=== PATIENT | female | born 1995 | race Two or more races ===

== ENCOUNTER 2022-02-12 18:49 | Inpatient (IN) | payer MEDICAID, OTHER, SELFPAY ==
--- NOTE | 2022-02-12 19:33 | P.HPPS_ITS ---
HPI Date of Service: 02/12/22 Chief Complaint: OD, depression Sources of Information: patient interviewed, chart reviewed and crisis/core team assessment reviewed HPI Subjective Notes: [place] Warning, Conditional Voluntary and 3 Day Healthcare Proxy: No Guardianship: No Medical Problems Affecting Mental Status: No Narrative: Pt is a 26 y.o. Trinid[place] speaking female who presented to [facility] on 02/07/22 after she disclosed to her friend that she had intentionally overdosed on 50 pills that was a mixture of tylenol 500 mg, loratadine, and benadryl. She was medically admitted and cleared on 02/12/22. Precipitating factors include her boyfriend, who she was living with, said he was leaving and didn?t say why. Reviewed labs from admission, which showed CMP wnl except glucose L 69. Utox was negative. U/A negative. Serum negative. Acetaminophen level 16. CBC wnl except Hgb L 11.5. EKG wnl, Qtc 417, NSR. Hx of SIB (superficial cutting).? Per [facility] crisis, pt would not disclose if this was a suicide attempt and as per records she has said both that she was trying to sleep and also mentioned she wished she did not wake up.? I evaluated the pt this evening and upon interview she says her mood is ?good.? She denies issues with sleep. Denies anxiety. Denies depression. Denies SI/SIB/HI. No physical health issues. Signed a 3 day notice. Past Psychiatric History: -Denies past psych hx Medical [facility] Social History: -Pt was raised in the [place] with her parents who are supportive. She moved to [place] in 2018. Was living with her bf but he recently left. -She graduated high school and then went to college for 2 yrs studying graphics design. Has been working at a [employer]. Substance History: -Denies alcohol or illicit substance use. Last used cannabis 2 weeks ago. Meds/Allergies Meds Home Medications Acetaminophen (Acetaminophen 325 Mg Tablet) 650 mg PO Q6H PRN PRN Reason: Headache/Pain Mild Scale (1-3) Acetaminophen (Acetaminophen 325 Mg Tablet) 650 mg PO Q6H PRN PRN Reason: Headache/Pain Mild Scale (1-3) Al Hydroxide/Mg Hydroxide (Magnesium Hydrox/Alum Hydrox 30 Ml Oral.Susp) 30 ml PO Q6H PRN PRN Reason: Heartburn/Nausea Last Admin: 02/13/22 19:47 Dose: 30 ml Documented by: Al Hydroxide/Mg Hydroxide (Magnesium Hydrox/Alum Hydrox 30 Ml Oral.Susp) 30 ml PO Q6H PRN PRN Reason: Heartburn/Nausea Hydroxyzine HCl (Hydroxyzine Hcl 25 Mg Tablet) 25 mg PO Q6H PRN PRN Reason: Anxiety Magnesium Hydroxide (Milk Of Magnesia 30 Ml Oral.Susp) 30 ml PO DAILY PRN PRN Reason: Constipation Magnesium Hydroxide (Milk Of Magnesia 30 Ml Oral.Susp) 30 ml PO DAILY PRN PRN Reason: Constipation Nicotine Polacrilex (Nicotine Polacrilex 2 Mg Gum) 4 mg BUCCAL Q2H PRN PRN Reason: Nicotine Cravings Trazodone HCl (Trazodone Hcl 50 Mg Tablet) 50 mg PO BEDTIME PRN PRN Reason: Insomnia Trazodone HCl (Trazodone Hcl 50 Mg Tablet) 50 mg PO BEDTIME PRN PRN Reason: Insomnia Allergies Allergies Allergy/AdvReac Type Severity Reaction Status Date / Time No Known Allergies Allergy Verified 02/12/22 18:54 Mental Status Exam Mental Status Exam Narrative: A&O. In hospital attire, overweight, well groomed. Good eye contact, attentive. No Tics or Tremors. No abnormal involuntary movements. Calm, somewhat guarded but overall cooperative, not overly talkative. Non-pressured speech, spontaneous with regular rate and rhythm, normal volume and prosody. No prolonged speech latency or dysarthria. Mood is ?good,? affect is nervous but appropriate. Denies SI/SIB/HI upon inquiry. Denies A/VH or delusional thought content. Thoughts are coherent, organized. No known cognitive or memory impairment. Insight/ Judgment limited but adequate. Assessment & Plan Assessment & Plan (1) MDD (major depressive disorder), single episode, mild: Status: Acute Code(s): F32.0 - Major depressive disorder, single episode, mild Plan Pt is a 26 y.o. [place] speaking female who presented to [facility] on 02/07/22 after she disclosed to her friend that she had intentionally overdosed on 50 pills that was a mixture of tylenol 500 mg, loratadine, and benadryl. She was medically admitted and cleared on 02/12/22. Precipitating factors include her boyfriend, who she was living with, said he was leaving and didn?t say why. No previous psych hx. No past psych med trials. Plan: Pt declines med trial at this time, says she is feeling safe. Signed a 3 day. Q15 min safety checks, CV Monitor response to medications. Monitor for safety in the milieu. Discharge on stabilization. Patient seen. Chart reviewed. Discussed with team. Obtain collateral contact info?as needed Patient educated on: medication risk/benefits and therapeutic strategies Reason for continued inpatient stay Substantial Risk for: med/psych decompensation
[2022-02-12 19:55] VITALS: BMI 37.0
--- NOTE | 2022-02-12 22:32 | PC.ADMIT ---
Pt is 26 year old woman. Pt is Georgian speaking. [employer] services used in admission. Pt is admitted from [facility] for inpatient level of care after pt was s/p of intentional overdose with Tylenol and Benadryl. Pt is alert and oriented X4, VSS, Covid negative, Tox screen negative. Speech is normal with regular tone and rhythm. Pt endorsed experiencing depressed mood, loneliness, poor appetite, increased sleep, and presented with depressed mood and congruent affect with poor judgment and impulse control. Pt was tearful after mum left the unit, saying she has not been admitted in an inpatient unit before. Admission orders obtained.
[2022-02-13 06:00] VITALS: BP 107/70; PULSE 72; RESP 18; TEMP 36.9; O2SAT 98
[2022-02-13 09:32] LABS: Magnesium 2.2 mg/dL (1.6-2.6)
[2022-02-13 09:54] LABS: Free T4 (Free Thyroxine) 0.93 ng/dL (0.71-1.85); Thyroid Stimulating Hormone 1.92 uIU/mL (0.32-4.0)
--- NOTE | 2022-02-13 10:04 | PC.NURSE ---
Pt signed 3 day up on tuesday 02/13. MR, SW, UR aware.
[2022-02-13 13:40] LABS: Folate 12.3 ng/mL (> or = 4.0); Vitamin B12 449 pg/mL (200-900)
--- NOTE | 2022-02-13 17:52 | HO.PSYADMNOT ---
HPI Chief Complaint: OD, depression Diagnostics Vital Signs (24Hr): Vital Signs - 24 hr 02/13/22 06:00 Temperature 98.4 F Pulse Rate 72 Respiratory Rate 18 Blood Pressure 107/70 Pulse Oximetry 98 BMI result Body Mass Index 37.0 Labs Labs: Laboratory Results - last 48 hr 02/13/22 02/13/22 08:35 08:35 Magnesium 2.2 Vitamin B12 449 Folate 12.3 TSH 1.92 Free T4 0.93 Meds/Allergies Allergies Allergies Allergy/AdvReac Type Severity Reaction Status Date / Time No Known Allergies Allergy Verified 02/12/22 18:54
[2022-02-13 19:45] VITALS: BP 119/84; PULSE 101; TEMP 36.7
[2022-02-13] MEDS: Magnesium Hydrox/Alum Hydrox 30 ML ORAL.SUSP PO (19:47)
--- NOTE | 2022-02-13 22:27 | P.PNPSI_ITS ---
Subjective Subjective Date of Service: 02/13/22 Reason For Visit: OD, depression Subjective Notes: [place] Warning, Conditional Voluntary and 3 Day Healthcare Proxy: No Guardianship: No Medical Problems Affecting Mental Status: No Interim History: Patient seen and discussed with team. Patient evaluated today with spanish interpreter/translator and upon interview she says she is good, slept well. Still doesnt want to trial psych meds. Interested in obtaining OP therapy referral. She continues to report that her OD attempt was not a suicide attempt, says she didnt want to and had a lot of stuff going through my head, felt tired and couldnt sleep, I wanted to just relax and sleep. Says I didnt know tylenol was gonna cause that kind of damage. Says she was feeling sad but not really so depressed. She reports she was planning to get to her bf but he left with no explanation, she doesnt know what happened. Says she has since talked to him and she doesnt feel too bad about this, feels like she has accepted that god decided for this to happen. Has supports, i.e. mom and she has a cousin who is gonna move in with her. Interested in studying cosmetology, doing nails. Denies anxiety. Says she feels normal. Says she feels like im in shelter, wants to go home. Denies SI/SIB.? In the milieu, patient is safe and appropriate in behavior. Says she feels safe. Medication Compliance: Yes Side effects from medications: No Attending Groups: No Review of Systems Acute medical concerns: No Medical Review of Systems: unchanged Mental Status Exam Mental Status Exam Narrative: A&O. In casual attire, overweight, well groomed. Good eye contact, attentive. No Tics or Tremors. No abnormal involuntary movements. Calm, somewhat guarded but overall cooperative, not overly talkative. Non-pressured speech, spontaneous with regular rate and rhythm, normal volume and prosody. No prolonged speech latency or dysarthria. Mood is ?good,? affect is nervous but appropriate. Denies SI/SIB/HI upon inquiry. Denies A/VH or delusional thought content. Thoughts are coherent, organized. No known cognitive or memory impairment. Insight/ Judgment limited but adequate. Diagnostics Vital Signs (24Hr): Vital Signs - 24 hr 02/13/22 06:00 Temperature 98.4 F Pulse Rate 72 Respiratory Rate 18 Blood Pressure 107/70 Pulse Oximetry 98 BMI result Body Mass Index 37.0 Labs Labs: Laboratory Results - last 48 hr 02/13/22 02/13/22 08:35 08:35 Magnesium 2.2 Vitamin B12 449 Folate 12.3 TSH 1.92 Free T4 0.93 Medications Medications Current Medications Acetaminophen (Acetaminophen 325 Mg Tablet) 650 mg PO Q6H PRN PRN Reason: Headache/Pain Mild Scale (1-3) Acetaminophen (Acetaminophen 325 Mg Tablet) 650 mg PO Q6H PRN PRN Reason: Headache/Pain Mild Scale (1-3) Al Hydroxide/Mg Hydroxide (Magnesium Hydrox/Alum Hydrox 30 Ml Oral.Susp) 30 ml PO Q6H PRN PRN Reason: Heartburn/Nausea Last Admin: 02/13/22 19:47 Dose: 30 ml Documented by: Al Hydroxide/Mg Hydroxide (Magnesium Hydrox/Alum Hydrox 30 Ml Oral.Susp) 30 ml PO Q6H PRN PRN Reason: Heartburn/Nausea Hydroxyzine HCl (Hydroxyzine Hcl 25 Mg Tablet) 25 mg PO Q6H PRN PRN Reason: Anxiety Magnesium Hydroxide (Milk Of Magnesia 30 Ml Oral.Susp) 30 ml PO DAILY PRN PRN Reason: Constipation Magnesium Hydroxide (Milk Of Magnesia 30 Ml Oral.Susp) 30 ml PO DAILY PRN PRN Reason: Constipation Nicotine Polacrilex (Nicotine Polacrilex 2 Mg Gum) 4 mg BUCCAL Q2H PRN PRN Reason: Nicotine Cravings Trazodone HCl (Trazodone Hcl 50 Mg Tablet) 50 mg PO BEDTIME PRN PRN Reason: Insomnia Trazodone HCl (Trazodone Hcl 50 Mg Tablet) 50 mg PO BEDTIME PRN PRN Reason: Insomnia Allergies Allergies Allergy/AdvReac Type Severity Reaction Status Date / Time No Known Allergies Allergy Verified 02/12/22 18:54 Assessment & Plan Assessment & Plan (1) MDD (major depressive disorder), single episode, mild: Status: Acute Code(s): F32.0 - Major depressive disorder, single episode, mild Plan Pt is a 26 y.o. [place] speaking female who presented to [facility] on 02/07/22 after she disclosed to her friend that she had intentionally overdosed on 50 pills that was a mixture of tylenol 500 mg, loratadine, and benadryl. She was medically admitted and cleared on 02/12/22. Precipitating factors include her boyfriend, who she was living with, said he was leaving and didn?t say why. No previous psych hx. No past psych med trials. Plan: Pt declines med trial at this time, says she is feeling safe. Signed a 3 day. 02/13: Pt continues to decline med management, denies SI/SIB. Q15 min safety checks, CV Monitor response to medications. Monitor for safety in the milieu. Discharge on stabilization. Patient seen. Chart reviewed. Discussed with team. Obtain collateral contact info?as needed I spent minutes with the patient and/or on the patient floor today, greater than?50% of which was spent counseling/coordinating care. Patient educated on: therapeutic strategies Guardian/Caregiver educated on: therapeutic strategies Reason for contiued inpatient stay Substantial Risk for: med/psych decompensation
[2022-02-14 06:00] VITALS: BP 113/59; PULSE 80; TEMP 37; O2SAT 98
--- NOTE | 2022-02-14 10:28 | HO.PM.IMCN ---
History of Present Illness Data of Consult Service Date: 02/14/22 Primary Care Provider: Unknown Physician HPI Reason for consult: Routine Medical H&P 26 yo F with a PMH of intermittent asthma who is admitted to . Medical consult requested for routine medical H&P per protocol. Patient is seen and examined in the exam room. Floor staff member interprets and patients mother is present. They deny any medical complaints at this time. PMH Intermittent asthma PSH Denies FH HTN, DM in father SH Denies tobacco, alcohol or illicit substance abuse Review of Systems Review of Systems: negative except HPI PMFSH Social History Household Members: Family Housing: House Do you presently have visiting nurse or other home services: No Patient Tobacco Use Status: Never used Tobacco Use of substances other than those prescribed or required for medical reasons: No Currently Displaying Signs/Symptoms of Drug Intoxication Withdrawal: No Have you been hit, kicked, punched, or otherwise hurt by someone within the past year? If so, by whom?: No Do you feel safe in your current relationship?: No Current Relationship Is there a partner from a previous relationship who is making you feel unsafe now?: No Are you made to feel afraid or neglected: No Spiritual Healthcare Practices: N/A Confucianism Healthcare Practices: N/A Cultural Healthcare Practices: N/A Advance Directives: No Advance Directives Information Provided: No Advance Directives on File: No Do you have thoughts of harming others: None Do you have a plan to hurt others: No Plan Recently lost weight without trying: No How much weight loss: Not applicable Eating poorly because of decreased appetite: No Nutrition screen score: 0 Nutrition Risks: No Nutritional Risk Patient : No : No Poor oral hygiene: No service: No Sexual orientation: Straight/Heterosexual Meds Allergies Allergy/AdvReac Type Severity Reaction Status Date / Time No Known Allergies Allergy Verified 02/12/22 18:54 Active Medications: Current Medications Acetaminophen (Acetaminophen 325 Mg Tablet) 650 mg PO Q6H PRN PRN Reason: Headache/Pain Mild Scale (1-3) Acetaminophen (Acetaminophen 325 Mg Tablet) 650 mg PO Q6H PRN PRN Reason: Headache/Pain Mild Scale (1-3) Al Hydroxide/Mg Hydroxide (Magnesium Hydrox/Alum Hydrox 30 Ml Oral.Susp) 30 ml PO Q6H PRN PRN Reason: Heartburn/Nausea Last Admin: 02/13/22 19:47 Dose: 30 ml Documented by: Al Hydroxide/Mg Hydroxide (Magnesium Hydrox/Alum Hydrox 30 Ml Oral.Susp) 30 ml PO Q6H PRN PRN Reason: Heartburn/Nausea Hydroxyzine HCl (Hydroxyzine Hcl 25 Mg Tablet) 25 mg PO Q6H PRN PRN Reason: Anxiety Magnesium Hydroxide (Milk Of Magnesia 30 Ml Oral.Susp) 30 ml PO DAILY PRN PRN Reason: Constipation Magnesium Hydroxide (Milk Of Magnesia 30 Ml Oral.Susp) 30 ml PO DAILY PRN PRN Reason: Constipation Nicotine Polacrilex (Nicotine Polacrilex 2 Mg Gum) 4 mg BUCCAL Q2H PRN PRN Reason: Nicotine Cravings Trazodone HCl (Trazodone Hcl 50 Mg Tablet) 50 mg PO BEDTIME PRN PRN Reason: Insomnia Trazodone HCl (Trazodone Hcl 50 Mg Tablet) 50 mg PO BEDTIME PRN PRN Reason: Insomnia Physical Exam Vital Signs and Narrative: Vital Signs: Last Vital Signs Temp 98.6 F 02/14/22 06:00 Pulse 80 02/14/22 06:00 Resp 18 02/13/22 06:00 BP 113/59 L 02/14/22 06:00 Pulse Ox 98 02/14/22 06:00 BMI result Body Mass Index 37.0 Const: Other: General - no acute distress, appears comfortable Cardiovascular - regular rate and rhythm, S1-S2 Lungs - normal respiratory effort, clear to auscultation bilaterally, no wheezing Abdomen - soft, nontender, no rebound or guarding Extremities - no edema bilaterally Neuro - awake and alert, no focal deficits; cn 2-12 intact bilaterally Results Labs Labs: Laboratory Results - last 24 hr 02/13/22 08:35 Vitamin B12 449 Folate 12.3 Assessment and Plan (1) Routine medical exam: Status: Acute Plan 26 yo F with intermittent asthma, admitted to . Medical consultation sought for routine medical H&P. Patient has no active medical issues. Patient has been counseled on age appropriate health maintenance as an outpatient. Continue care per primary team. Will sign off. Please re-consult if any issues arise.
--- NOTE | 2022-02-14 16:19 | HO.PSYCHPN ---
Subjective Subjective Date of Service: 02/14/22 Reason For Visit: OD, depression Subjective Notes: [place] Warning, Conditional Voluntary and 3 Day Healthcare Proxy: No Guardianship: No Medical Problems Affecting Mental Status: No Interim History: Patient seen and discussed with team. Patient evaluated today with program management specialist and SW and upon interview she reports she feels good, she continues to deny sx of anxiety or depression. Continues to deny that her overdose was a suicide attempt and denies urges to self harm, denies SI. She identifies protective factors as family, work, and her dog. Says she doesnt want to end up back in the hospital again and says she feels safe. Administered PHQ-9, which was negative. In the milieu, patient is safe and appropriate in behavior. Review of Systems Acute medical concerns: No Medical Review of Systems: unchanged Mental Status Exam Mental Status Exam Narrative: A&O. In casual attire, overweight, well groomed. Good eye contact, attentive. No Tics or Tremors. No abnormal involuntary movements. Calm, somewhat guarded but overall cooperative, not overly talkative. Non-pressured speech, spontaneous with regular rate and rhythm, normal volume and prosody. No prolonged speech latency or dysarthria. Mood is ?good,? affect is euthymic. Denies SI/SIB/HI upon inquiry. Denies A/VH or delusional thought content. Thoughts are coherent, organized. No known cognitive or memory impairment. Insight/ Judgment limited, as she appears to be minimizing situation, but adequate. Diagnostics Vital Signs (24Hr): Vital Signs - 24 hr 02/13/22 19:45 02/14/22 06:00 Temperature 98.0 F 98.6 F Pulse Rate 101 H 80 Blood Pressure 119/84 113/59 L Pulse Oximetry 98 BMI result Body Mass Index 37.0 Labs Labs: Laboratory Results - last 48 hr 02/13/22 02/13/22 08:35 08:35 Magnesium 2.2 Vitamin B12 449 Folate 12.3 TSH 1.92 Free T4 0.93 Medications Medications Current Medications Acetaminophen (Acetaminophen 325 Mg Tablet) 650 mg PO Q6H PRN PRN Reason: Headache/Pain Mild Scale (1-3) Acetaminophen (Acetaminophen 325 Mg Tablet) 650 mg PO Q6H PRN PRN Reason: Headache/Pain Mild Scale (1-3) Al Hydroxide/Mg Hydroxide (Magnesium Hydrox/Alum Hydrox 30 Ml Oral.Susp) 30 ml PO Q6H PRN PRN Reason: Heartburn/Nausea Last Admin: 02/13/22 19:47 Dose: 30 ml Documented by: Al Hydroxide/Mg Hydroxide (Magnesium Hydrox/Alum Hydrox 30 Ml Oral.Susp) 30 ml PO Q6H PRN PRN Reason: Heartburn/Nausea Hydroxyzine HCl (Hydroxyzine Hcl 25 Mg Tablet) 25 mg PO Q6H PRN PRN Reason: Anxiety Magnesium Hydroxide (Milk Of Magnesia 30 Ml Oral.Susp) 30 ml PO DAILY PRN PRN Reason: Constipation Magnesium Hydroxide (Milk Of Magnesia 30 Ml Oral.Susp) 30 ml PO DAILY PRN PRN Reason: Constipation Nicotine Polacrilex (Nicotine Polacrilex 2 Mg Gum) 4 mg BUCCAL Q2H PRN PRN Reason: Nicotine Cravings Trazodone HCl (Trazodone Hcl 50 Mg Tablet) 50 mg PO BEDTIME PRN PRN Reason: Insomnia Trazodone HCl (Trazodone Hcl 50 Mg Tablet) 50 mg PO BEDTIME PRN PRN Reason: Insomnia Allergies Allergies Allergy/AdvReac Type Severity Reaction Status Date / Time No Known Allergies Allergy Verified 02/12/22 18:54 Assessment & Plan Assessment & Plan (1) Routine medical exam: Status: Acute Code(s): Z00.00 - Encounter for general adult medical examination without abnormal findings Plan Pt is a 26 y.o. Citizen [place] speaking female who presented to [facility] on 02/07/22 after she disclosed to her friend that she had intentionally overdosed on 50 pills that was a mixture of tylenol 500 mg, loratadine, and benadryl. She was medically admitted and cleared on 02/12/22. Precipitating factors include her boyfriend, who she was living with, said he was leaving and didn?t say why. No previous psych hx. No past psych med trials. Plan: Pt declines med trial at this time, says she is feeling safe. Signed a 3 day. 02/13: Pt continues to decline med management, denies SI/SIB. 02/14: Pt not interested in med management, says she feels safe, denies SI/SIB Q15 min safety checks, CV Monitor response to medications. Monitor for safety in the milieu. Discharge on stabilization. Patient seen. Chart reviewed. Discussed with team. Obtain collateral contact info?as needed I spent minutes with the patient and/or on the patient floor today, greater than?50% of which was spent counseling/coordinating care. Patient educated on: therapeutic strategies Reason for contiued inpatient stay Substantial Risk for: stable for discharge
[2022-02-15 06:10] VITALS: BP 108/68; PULSE 70; RESP 15; TEMP 36.8; O2SAT 99
--- NOTE | 2022-02-15 20:23 | PM.DS ---
DS: Providers Provider Date of Service: 02/15/22 Date of admission: 02/12/22 18:49 Date of discharge: 02/15/22 Primary care physician: Unknown Physician Admitting clinician: Bobbi Ann Attending physician on admission: Rohith Zamora Consults: 02/12/22 18:54 Consult to Hospitalist Routine Consulting Provider: Hospitalist Reason For Exam: [place] [facility] [place]12[place] 20:02 Consult to Hospitalist Routine Consulting Provider: Hospitalist Reason For Exam: admission physical Attending physician on discharge: Rohith Zamora Discharging clinician: Bobbi Ann DS: Diagnosis Discharge Diagnosis (1) Routine medical exam: Status: Acute DS: Summary Hospital Course Hospital Course: Pt is a 26 y.o. Urdu speaking female who presented [place] [facility] [place] after she disclosed to her friend that she had intentionally overdosed on 50 pills that was a mixture of tylenol 500 mg, loratadine, and benadryl. She was medically admitted and cleared on 02/12/22. Precipitating factors include her boyfriend, who she was living with, said he was leaving and didn?t say why. Reviewed labs from admission, which showed CMP wnl except glucose L 69. Utox was negative. U/A negative. Serum negative. Acetaminophen level 16. CBC wnl except Hgb L 11.5. EKG wnl, Qtc 417, NSR. Hx of SIB (superficial cutting).?Per [facility] crisis, pt would not disclose if this was a suicide attempt and as per records she has said both that she was trying to sleep and also mentioned she wished she did not wake up.? Upon admission pt signed a 3 day notice. During course of hospitalization she consistently denied that her overdose was a suicide attempt and says she did not know that acetaminophen could be lethal in overdose. Pt reports feeling safe and stable for discharge. She consistently denied suicidal ideation or self harm behaviors. Pt was safe and appropriate in behavior on the unit with no imminent safety concerns. Pt declined medication management and due to insurance issues, OP therapy is not covered. She identified her family as a protective factor. Her request for discharge was honored. PHQ-9 was a zero on discharge. Status at Discharge Cognitive/behavioral status at discharge: Stable and safe. Functional status at discharge: independent ambulation Overall status at discharge: patient is back to baseline Time Spent with Patient Time attestation: Total time spent providing and/or coordinating discharge services: Discharge coordination time: Less than 30 minutes Quality: Safe Use of Opioids Does Pt have an Active Cancer Diagnosis on the Problem List?: No Quality: Stroke Does the patient have a stroke diagnosis?: No Physical Exam Vital Signs: Vital Signs: Last Vital Signs Temp 98.3 F 02/15/22 06:10 Pulse 70 02/15/22 06:10 Resp 15 02/15/22 06:10 BP 108/68 02/15/22 06:10 Pulse Ox 99 02/15/22 06:10 BMI result Body Mass Index 37.0 Discharge Plan Discharge Patient Disposition: Home, Self-Care Discharge Diagnosis: MDD, single episode, mild Referrals: [facility] [Other] - 02/26/22 11:20 am (IN PERSON) [facility] [Other] - 1 Week Discharge Orders: Discharge Order (Routine); Ordered 02/15/22 Ordered By: Rohith Zamora Diet: regular diet Activity on Discharge: As tolerated Stand Alone Forms: Patient Portal Discharge page, Community Support Print Language: Urdu Care Plan Goals: Maintain mood and safe behaviors Practice coping skills Continue with outpatient providers and reach out to them as needed Health Concerns: Mood stability and behaviors Plan of Treatment: Follow up with outpatient providers regarding above concerns Assessment: Risk assessment at time of discharge:? Patient was interviewed prior to discharge and found to be fully oriented and without any SI or HI. Patient has insight and demonstrates good judgment in terms of wanting to pursue treatment. Patient is not in imminent risk of harm to self or others and has a safety plan that includes presenting to the closest ER or calling 911 if feeling unsafe.? Patient has been observed closely by nursing and unit staff throughout admission; patient has not engaged in any behaviors that suggest dangerousness to self or others and has demonstrated appropriate behaviors and impulse control Discharge Date/Time: 02/15/22 13:22
== END 2022-02-15 13:22 | disposition home or self-care (01) | DRG 751 ==
PROVIDERS: Admitting Provider Psychiatry & Neurology Psychiatry; Visit Provider Registered Nurse
DX: F32.0 Major depressive disorder, single episode, mild (principal)
CPT/HCPCS: 36415; 82607; 82746; 83735; 84439; 84443